=== PATIENT | female | born 1955 | race African-American/Black ===

== ENCOUNTER → 2017-08-04 | Outpatient (CLI) | payer BC, OTHER ==
[~2017-08-04] MED LIST: ASPIRIN EC81 M1 PO; PRILOSEC40 MG PO; PROTONIX40 MG PO
== END ==
LOC: RAD 04:08
DX: Z12.31 Encounter for screening mammogram for malignant neoplasm of breast (principal)

== ENCOUNTER → 2018-09-08 | Outpatient (CLI) | payer BC, OTHER | LOC: RAD 01:13 | DX: Z12.31 Encounter for screening mammogram for malignant neoplasm of breast (principal) ==

== ENCOUNTER → 2019-10-02 | Outpatient (CLI) | payer BC, OTHER | LOC: RAD 10:05 | DX: Z12.31 Encounter for screening mammogram for malignant neoplasm of breast (principal) ==

== ENCOUNTER → 2020-03-20 | Outpatient (CLI) | payer BC, OTHER | LOC: ULTRA 10:23 | DX: R22.2 Localized swelling, mass and lump, trunk (principal) ==

== ENCOUNTER → 2021-07-02 | Outpatient (CLI) | payer BC, OTHER | LOC: BC 15:18 | PROVIDERS: ATTEND Family Medicine | DX: Z12.31 Encounter for screening mammogram for malignant neoplasm of breast (principal); N63.14 Unspecified lump in the right breast, lower inner quadrant ==

== ENCOUNTER → 2021-07-09 | Outpatient (CLI) | payer BC, OTHER | LOC: ULTRA 08:46 | PROVIDERS: ATTEND Family Medicine | DX: N63.10 Unspecified lump in the right breast, unspecified quadrant (principal); R92.8 Other abnormal and inconclusive findings on diagnostic imaging of breast ==